=== PATIENT | female | born 1985 | race Caucasian/White ===

== ENCOUNTER → 2024-02-22 | Outpatient (CLI) | payer SELFPAY | END | disposition home or self-care (01) | LOC: RAD 10:47 | PROVIDERS: ATTEND Nurse Practitioner Women's Health | DX: N83.299 Other ovarian cyst, unspecified side (principal) | CPT/HCPCS: 76830; 76856 ==

== ENCOUNTER → 2024-07-08 | Outpatient (CLI) | payer BC ==
[2024-07-08 14:26] LABS: EOSINOPHIL # 0.1 10^3/uL (0.0-0.2); EOSINOPHIL % 1.7 % (0.0-5.0); HEMATOCRIT(ML) 46.8 % (36.0-46.0); HEMOGLOBIN 15.9 g/dL (12.0-15.0); LYMPHOCYTES # 1.18 10^3/uL1 (1.0-4.8); LYMPHOCYTES % 20.5 % (24.0-44.0); MEAN CORP HGB 32.3 pg (26-34); MEAN CORP VOLUME 94.9 fL (78-100); MONOCYTES # 0.3 10^3/uL (0.3-0.8); MONOCYTES % 5.4 % (5.0-12.0); NEUTROPHIL # 4.2 10^3/uL (1.8-7.7); NEUTROPHILS % 72.4 % (41.0-85.0); PLATELET COUNT 255 10^3/uL (150-400); RED BLOOD CELL 4.93 10^6/uL (4.00-5.20); RED CELL DISTRIBUTION WIDTH 11.8 % (11.5-14.5); WHITE BLOOD CELL 5.8 10^3/uL (4.5-11.0)
[2024-07-08 14:27] LABS: +ADD MANUAL DIFF(NO CHRG) NO
== END | disposition home or self-care (01) ==
LOC: RAD 13:17
PROVIDERS: ATTEND Nurse Practitioner Women's Health
DX: N92.6 Irregular menstruation, unspecified (principal); R93.89 Abnormal findings on diagnostic imaging of other specified body structures
CPT/HCPCS: 36415; 76830; 76856; 82607; 84439; 84443; 85025

== ENCOUNTER → 2024-10-25 | Outpatient (CLI) | payer BC | END | disposition home or self-care (01) | LOC: RAD 16:19 | PROVIDERS: ATTEND Nurse Practitioner Women's Health | DX: N83.201 Unspecified ovarian cyst, right side (principal); N92.6 Irregular menstruation, unspecified | CPT/HCPCS: 76830; 76856 ==